=== PATIENT | male | born 1990 | race Caucasian/White ===

== ENCOUNTER 2020-04-02 17:26 | Emergency (ER) | payer OTHER, SELFPAY ==
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
[2020-04-02 17:45] VITALS: BP 138/80; PULSE 73; RESP 16; TEMP 36.9; O2SAT 99
--- NOTE | 2020-04-02 17:53 | WC.ED.TRAUMA ---
HPI - Trauma General Chief Complaint: Extremity Injury, Upper Stated Complaint: thumb injury Time Seen by Provider: 04/02/20 17:32 Source: patient Mode of arrival: ambulatory Limitations: no limitations History of Present Illness HPI narrative: Patient is a 29-year-old male who presents to emergency department for evaluation of left thumb injury noting that he closed the thumb in a door just prior to arrival with moderate aching pain at the base of the thumb. Patient also notes right upper posterior dental pain and was just seen at a dental office prescribed Motrin and amoxicill patient denies any recent illness or other complaints and is otherwise resting comfortably in the room upon arrival Related Data Allergies Allergy/AdvReac Type Severity Reaction Status Date / Time No Known Allergies Allergy Unverified 08/09/18 15:20 Review of Systems Review of Systems: All systems reviewed & are unremarkable except as noted in HPI and below PMFSH Social History Social History (Updated 04/02/20 @ 17:55 by Frandy Sibley PA-C) Smoking status: Current every day smoker Exam Narrative: Exam Narrative: GENERAL: Well-appearing, well-nourished, and in no acute distress. HEAD: Normocephalic, atraumatic. EYES: PERRLA and EOMI. ENT: Nares clear, no rhinorrhea or epistaxis. Mucous membranes moist. Oropharynx without tonsillar hypertrophy exudate or other lesions. Dental caries to right upper posterior molar no erythema fluctuance or other abnormalities. Uvula midline no trismus or drooling CHEST: Clear to auscultation. No respiratory distress. No wheezes rales or rhonchi HEART: Regular rate and rhythm. No murmur heard. Normal peripheral pulses. EXTREMITIES: Normal range of motion. No edema. T tenderness at the base of the left thumb no deformity SKIN: Warm, dry, no rash. NEURO: No focal deficits. Alert and oriented x3. Neurovascularly intact PSYCH: Normal mood and affect. Course Vital Signs Vital signs: Vital Signs Temperature 98.4 F 04/02/20 17:45 Pulse Rate 73 04/02/20 17:45 Respiratory Rate 16 04/02/20 17:45 Blood Pressure 138/80 04/02/20 17:45 Pulse Oximetry 99 04/02/20 17:45 Temperature 98.4 F 04/02/20 17:45 Pulse Rate 73 04/02/20 17:45 Respiratory Rate 16 04/02/20 17:45 Blood Pressure 138/80 04/02/20 17:45 Pulse Oximetry 99 04/02/20 17:45 MDM - Trauma MDM Narrative Medical decision making narrative: Patients injury or pain is consistent with musculoskeletal etiology. No signs of neurological or vascular compromise on exam. Compartments and tisues are soft without signs of compartment syndrome. Pain is felt appropriate for further evaluation on an outpatient basis. Discharge Plan Discharge Clinical Impression: Injury of thumb, left, Dentalgia Patient Disposition: Home, Self-Care Condition: Stable Instructions: Antibiotic Form, Toothache (ED) Additional Instructions: Follow up with your primary care doctor in 5-7 days for re-evaluation. Go to ER for worsening pain, vision changes, nausea/vomiting, fever/chills, weakness, chest pain, shortness of breath, numbness/tingling, slurred speech, difficulty walking, change in mental status etc. or any other concerns. Follow-up with dentistry in the next 7 days Take any prescribed medications as directed. Follow-up/Referrals: Eros Zarate MD [Primary Care Provider] - Stand Alone Forms: Work/School Release IP
[2020-04-02] MEDS: KETOROLAC (*BKC) 60 MG/2 ML VIAL IM (19:10)
== END 2020-04-02 19:15 | disposition home or self-care (01) ==
PROVIDERS: Emergency Provider Emergency Medicine; PCP Emergency Medicine
DX: S69.92XA Unspecified injury of left wrist, hand and finger(s), initial encounter (principal); K08.89 Other specified disorders of teeth and supporting structures; F17.210 Nicotine dependence, cigarettes, uncomplicated
CPT/HCPCS: 73140; 96372; 99283; A9270; J1885

== ENCOUNTER 2020-09-26 09:08 | Emergency (ER) | payer OTHER, SELFPAY ==
[2020-09-26 09:18] VITALS: BP 141/80; PULSE 60; RESP 16; TEMP 36.6; O2SAT 100
--- NOTE | 2020-09-26 10:14 | ED.DENTAL ---
HPI - Dental/Oral General Chief complaint: Dental/Oral Stated complaint: TOOTH BROKE Time Seen by Provider: 09/26/20 10:07 Source: patient Mode of arrival: ambulatory Limitations: no limitations History of Present Illness HPI Narrative: 30 years old white male presents with left upper dental pain, for the last few days. Patient reported to having a broken tooth at that area few days ago subsequently developed some swelling of the gums. Patient denies any fever, chills, nausea, vomiting, headache, difficulty swallowing or breathing Related Data Home Medications Medication Instructions Recorded Confirmed paroxetine HCl 20 mg PO DAILY 09/26/20 09/26/20 Allergies Allergy/AdvReac Type Severity Reaction Status Date / Time No Known Allergies Allergy Verified 09/26/20 09:51 Review of Systems Review of Systems: Narrative: CONSTITUTIONAL: Denies fever, chills, or sweats. EYES: Denies visual changes, redness, or discharge. ENT: Denies rhinorrhea, congestion, sore throat, or otalgia. CARDIOVASCULAR: Denies chest pain, palpitations, or edema. RESPIRATORY: Denies cough or dyspnea. GASTROINTESTINAL: Denies abdominal pain, nausea, vomiting, or diarrhea. GENITOURINARY: Denies dysuria or hematuria. SKIN: Denies rash or itching. MUSCULOSKELETAL: Denies back pain, joint pain, or myalgia. NEUROLOGIC: Denies headache, numbness, or weakness. PSYCHIATRIC: Denies anxiety or depression. PMFSH Social History Social History Smoking status: Current every day smoker Exam Narrative: Exam Narrative: General appearance: Well-developed, well-nourished Skin: Normal color ENT: Oropharynx normal, ears normal, nose normal, broken tooth left upper gum with swelling tender exam. No abscess formation Neck: Supple, nontender Chest and respiratory: Airway patent, no respiratory distress, no accessory muscle use Heart: Regular rate/rhythm Neurologic: Alert and oriented ?3, Course Course Emergency Course: Stable Vital Signs Vital signs: Vital Signs Temperature 36.6 C 09/26/20 09:18 Pulse Rate 60 09/26/20 09:18 Respiratory Rate 16 09/26/20 09:18 Blood Pressure 141/80 H 09/26/20 09:18 Pulse Oximetry 100 09/26/20 09:18 Temperature 36.6 C 09/26/20 09:18 Pulse Rate 60 09/26/20 09:18 Respiratory Rate 16 09/26/20 09:18 Blood Pressure 141/80 H 09/26/20 09:18 Pulse Oximetry 100 09/26/20 09:18 MDM - Dental/Oral MDM Narrative Medical decision making narrative: Dental infection is my concern Differential Diagnosis Differential diagnosis: Likely toothache and fracture of tooth Critical Care Time Critical Care Time Critical Care Time: No Discharge Plan Discharge Clinical Impression: Toothache Patient Disposition: Home, Self-Care Condition: Stable Instructions: Toothache (ED) Additional Instructions: Return if symptoms are worsening , call your dentist for appointment, take Tylenol as as needed for aches and pain, continue home medications. Prescriptions: New penicillin V potassium 500 mg tablet 500 mg PO Q6H Qty: 40 RF: 0 No Action paroxetine HCl 20 mg tablet 20 mg PO DAILY RF: 0 Follow-up/Referrals: Eros Zarate MD [Primary Care Provider] - Stand Alone Forms: Work/School Release IP
[2020-09-26] MEDS: KETOROLAC (*BKC) 60 MG/2 ML VIAL IM (10:42)
== END 2020-09-26 10:45 | disposition home or self-care (01) ==
PROVIDERS: Emergency Provider Emergency Medicine; PCP Emergency Medicine
DX: K08.89 Other specified disorders of teeth and supporting structures (principal); F17.200 Nicotine dependence, unspecified, uncomplicated
CPT/HCPCS: 96372; 99283; J1885

== ENCOUNTER 2021-01-10 20:50 | Emergency (ER) | payer OTHER, SELFPAY ==
--- NOTE | ~2021-01-10 | XR_ITS ---
EXAMINATION: XR ankle RT min 3V DATE: 01/10/2021 21:41 INDICATION: Right ankle injury and pain. TECHNIQUE: 4 views of right ankle were obtained. COMPARISON: Right ankle radiographs 03/29/2017 FINDINGS: Bone alignment is normal. No acute fracture. There is a small fragment of chronic ossificat ion distal to medial malleolus. There is mild ankle joint osteoarthritis. There is ankle soft tissue swelling. IMPRESSION: 1. Mild ankle joint osteoarthritis. Reviewed, dictated and finalized at location A.
--- NOTE | ~2021-01-10 | CT_ITS ---
EXAMINATION: CT brain wo con DATE: 01/10/2021 21:33 INDICATION: Head injury. Seizure. TECHNIQUE: Computed tomography (CT) of the head was performed without intravenous contrast. The mA wa s adjusted according to patient size. Iterative reconstruction technique was employed. The dose-lengt h product was 681.00 mGy-cm. COMPARISON: None FINDINGS: There is no intracranial hemorrhage, acute infarction, or abnormal intracranial mass lesion . The ventricles are normal in size. There is mild mucosal thickening in the paranasal sinuses. The m astoid air cells are normal. IMPRESSION: 1. Normal brain. Reviewed, dictated and finalized at location A. IMPRESSION: 1. Normal brain.
[2021-01-10 20:56] VITALS: BP 121/77; PULSE 67; RESP 16; TEMP 36.9; O2SAT 98
[2021-01-10 21:13] VITALS: BP 101/87; PULSE 98; RESP 12; RESP 16; O2SAT 96; O2SAT 98
--- NOTE | 2021-01-10 21:14 | ED.FALL ---
HPI - Fall General Chief Complaint: Fall Stated Complaint: Fall/inj to head-rt ankle ? seizure Time Seen by Provider: 01/10/21 21:11 Source: patient and family Limitations: no limitations and clinical condition History of Present Illness HPI Narrative: Patient is 30 years old white male rolled his right ankle and he fell down 4-6 steps smacked his head on the wll without loss of consciousness, was trying to remove his shoes then blacked out ,smacked his head hard on the table and started having seizure-like activity lasted for about 30 seconds. On arrival to the emergency room patient had another syncope during blood withdrawal. 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 Currently patient complaining of right ankle pain denying any headache, nausea, vomiting, chest pain or back pain. Related Data Allergies Allergy/AdvReac Type Severity Reaction Status Date / Time No Known Allergies Allergy Verified 01/10/21 20:51 Review of Systems Review of Systems: Narrative: CONSTITUTIONAL: Denies fever, chills, or sweats. EYES: Denies visual changes, redness, or discharge. ENT: Denies rhinorrhea, congestion, sore throat, or otalgia. CARDIOVASCULAR: Denies chest pain, palpitations, or edema. RESPIRATORY: Denies cough or dyspnea. GASTROINTESTINAL: Denies abdominal pain, nausea, vomiting, or diarrhea. GENITOURINARY: Denies dysuria or hematuria. SKIN: Denies rash or itching. MUSCULOSKELETAL: Denies back pain, joint pain, or myalgia. NEUROLOGIC: Denies headache, numbness, or weakness. PSYCHIATRIC: Denies anxiety or depression. [facility] Social History Social History Smoking status: Current every day smoker Exam Narrative: Exam Narrative: General appearance: Well-developed, well-nourished Skin: Normal color Head: Normocephalic, nontraumatic Eyes: Clear conjunctiva ENT: Oropharynx normal, ears normal, nose normal Neck: Supple, nontender Chest and respiratory: Airway patent, no respiratory distress, no accessory muscle use Heart: Regular rate/rhythm Abdomen: Soft, nontender, no organomegaly, quiet bowel sounds Vascular: Normal peripheral pulses, normal capillary refill. Musculoskeletal: Right ankle showed swelling laterally, slight limited range of motion, no deformity Neurologic: Alert and oriented ?3, [employer] is normal as tested, no gross motor deficit Course Course Emergency Course: Stable Reevaluation(s) Reevaluation #1: Currently patient feeling okay, declined to be transferred to [facility] and they would like to go home AGAINST MEDICAL ADVICE. Patient was told about the possible complication of head trauma like another syncope, or other seizure-like activity or the possibility of contusion and edema of the brain in the next few hours. Date: 01/10/21 Time: 22:50 Consultations Consultation #1: Dr. Prieto, ED [facility] accepted transfer Date: 01/10/21 Time: 21:56 Vital Signs Vital signs: Vital Signs Temperature 36.9 C 01/10/21 20:56 Pulse Rate 67 01/10/21 20:56 Respiratory Rate 16 01/10/21 20:56 Blood Pressure 121/77 01/10/21 20:56 Pulse Oximetry 98 01/10/21 20:56 Temperature 36.9 C 01/10/21 20:56 Pulse Rate 98 01/10/21 21:13 Respiratory Rate 16 01/10/21 21:13 Blood Pressure 101/87 01/10/21 21:13 Pulse Oximetry 98 01/10/21 21:13 MDM - Fall MDM Narrative Medical decision making narrative: Patient had a fall with subsequent loss of consciousness and seizure-like activity. Intracranial injury, contusion is my concern. CT head, x-ray right ankle ordered. Further plan to follow Lab Da
[2021-01-10 21:34] LABS: Basophils Percent Auto 0.3 % (0.2-1.2); Eosinophils Absolute Auto 0.1 K/mm3 (0-0.3); Eosinophils Percent Auto 0.7 % (0-4.4); Hematocrit 42.2 % (42.0-52.0); Hemoglobin 14.6 g/dL (14.0-18.0); Immature Granulocyte Absolute 0.02 K/mm3 (0.00-0.031); Immature Granulocyte Percent A 0.2 % (0-0.5); Lymphocytes Absolute Auto 2.88 K/mm3 (0.9-3.2); Lymphocytes Percent Auto 27.6 % (18.3-44.2); Mean Corpuscular HGB Conc 34.6 g/dl (32-36); Mean Corpuscular Hemoglobin 29.4 pg (26-34); Mean Corpuscular Volume 85.1 fl (80-100); Mean Platelet Volume 10.9 fl (7.4-10.4); Monocytes Absolute Auto 0.7 K/mm3 (0.1-0.6); Monocytes Percent Auto 7.1 % (2.6-8.5); Neutrophils Absolute Auto 6.7 K/mm3 (1.3-6.7); Neutrophils Percent Auto 64.1 % (45.5-73.1); Platelet Count Result 241 k/mm3 (150-375); Red Blood Count 4.96 M/mm3 (4.6-6.20); Red Cell Distribution Width 12.6 % (11.5-14.5); White Blood Count 10.4 K/mm3 (4.5-10.0)
[2021-01-10 21:51] LABS: Alanine Aminotransferase 31 U/L (4-50); Albumin Level 4.6 g/dL (3.5-5.1); Alkaline Phosphatase 72 U/L (38-126); Anion Gap 7 mmol/L (8-16); Aspartate Amino Transferase 33 U/L (17-59); Bilirubin,Total 0.2 mg/dL (0.2-1.3); Blood Urea Nitrogen 20 mg/dL (9-20); Calcium 9.4 mg/dL (8.4-10.2); Carbon Dioxide 24 mmol/L (22-30); Chloride 106 mmol/L (98-107); Estimated CRCL calculation 137 ml/min; Estimated Glomerular Filt Rate > 60; Glucose 106 mg/dL (75-110); Sodium 137 mmol/L (137-145)
[2021-01-10 21:58] LABS: Potassium 3.9 mmol/L (3.4-5.0)
--- NOTE | 2021-01-10 22:58 | PC.NURSE ---
patient expressed that he would not like to be transfered to [facility]. pt expressed that he would like to leave. pt was seen by . Pt was advised of the risk of leaving. pt was told that he would have have to sign AMA. Patient signed out AMA.
[2021-01-10 23:04] VITALS: BP 110/65; PULSE 70; RESP 16; TEMP 36.6; O2SAT 100
== END 2021-01-10 23:05 | disposition left against medical advice (07) ==
PROVIDERS: Emergency Medicine; Emergency Provider Emergency Medicine; PCP Emergency Medicine
DX: S06.0X9A Concussion with loss of consciousness of unspecified duration, initial encounter (principal); R55 Syncope and collapse; R56.9 Unspecified convulsions; F17.200 Nicotine dependence, unspecified, uncomplicated; M19.071 Primary osteoarthritis, right ankle and foot; W10.9XXA Fall (on) (from) unspecified stairs and steps, initial encounter; W22.8XXA Striking against or struck by other objects, initial encounter
CPT/HCPCS: 36415; 70450; 73610; 80053; 85025; 99284

== ENCOUNTER 2023-07-25 17:44 | Emergency (ER) | payer OTHER, SELFPAY ==
--- NOTE | ~2023-07-25 | XR_ITS ---
EXAMINATION: XR chest 2V DATE: 07/25/2023 18:02 INDICATION: Chest pain TECHNIQUE: Frontal and lateral views of the chest are obtained COMPARISON: 05/22/2016 FINDINGS: The lungs are free of acute opacities. No pleural effusion or pneumothorax. The cardiomedia stinal silhouette is normal. The visualized bones and soft tissues are unremarkable. IMPRESSION: 1. No acute cardiopulmonary abnormality. Reviewed, dictated and finalized at location F.
[2023-07-25 17:51] VITALS: BP 120/67; PULSE 84; RESP 18; TEMP 36.4; O2SAT 96
--- NOTE | 2023-07-25 17:57 | ED.GENADULT ---
HPI - General Adult General Chief complaint: Trauma Stated complaint: blunt chest trauma History of Present Illness HPI narrative: 32-year-old male with no medical problems presents to the emergency room for evaluation of chest wall pain following an injury at work. Patient states the hub assembly from a tire slipped and struck him in the chest. Patient states that it briefly took the wind out of him. Patient states the pain is worse with inspiration and movement. No other distracting injuries. Patient denies shortness of breath or difficulty breathing. Related Data Allergies Allergy/AdvReac Type Severity Reaction Status Date / Time No Known Allergies Allergy Verified 07/25/23 17:45 Review of Systems Review of Systems: All systems reviewed & are unremarkable except as noted in HPI and below PMFSH Social History Social History Smoking status: Current every day smoker Exam Const: General: healthy appearing, no acute distress and alert HENMT: Head: normal to inspection Eyes: Pupils: Equal, round and reactive pupils present EOM: EOMs intact bilaterally Chest: Chest palpation & inspection: normal inspection of the chest and tenderness Other: +TTP over the midsternum Resp: Effort & Inspection: normal respiratory effort Cardio: Rate: regular rate Rhythm: regular rhythm Other: Normal heart sounds, no muffled heart sounds Neuro: General: patient oriented x3, moves all extremities and CN's II-XI intact bilaterally Speech: normal speech Course Vital Signs Vital signs: Vital Signs Temperature 36.4 C 07/25/23 17:51 Pulse Rate 84 07/25/23 17:51 Respiratory Rate 18 07/25/23 17:51 Blood Pressure 120/67 07/25/23 17:51 Pulse Oximetry 96 07/25/23 17:51 Oxygen Delivery Room Air 07/25/23 17:51 Temperature 36.4 C 07/25/23 17:51 Pulse Rate 84 07/25/23 17:51 Respiratory Rate 18 07/25/23 17:51 Blood Pressure 120/67 07/25/23 17:51 Pulse Oximetry 96 07/25/23 17:51 Oxygen Delivery Room Air 07/25/23 17:51 Medical Decision Making [facility] Narrative Medical decision making narrative: 32-year-old male presents to the emergency room for evaluation of low energy blunt chest trauma following a work-related injury. Chest x-ray shows no acute bony abnormalities, no evidence of hemo or pneumothorax or pulmonary contusion, or blunt aortic injury. Vitals are stable. Vital Signs Vital Signs: Vital Signs Temperature 36.4 C 07/25/23 17:51 Pulse Rate 84 07/25/23 17:51 Respiratory Rate 18 07/25/23 17:51 Blood Pressure 120/67 07/25/23 17:51 Pulse Oximetry 96 07/25/23 17:51 Oxygen Delivery Room Air 07/25/23 17:51 Temperature 36.4 C 07/25/23 17:51 Pulse Rate 84 07/25/23 17:51 Respiratory Rate 18 07/25/23 17:51 Blood Pressure 120/67 07/25/23 17:51 Pulse Oximetry 96 07/25/23 17:51 Oxygen Delivery Room Air 07/25/23 17:51 Imaging Data Radiologist's impression: Impressions Chest X-Ray 07/25/23 18:08 IMPRESSION: 1. No acute cardiopulmonary abnormality. Discharge Plan Discharge Clinical Impression: Chest wall contusion Qualifiers: Encounter type: initial encounter Laterality: unspecified laterality Qualified Code(s): S20.219A - Contusion of unspecified front wall of thorax, initial encounter Patient Disposition: Home, Self-Care Condition: Stable Instructions: Antibiotic Form Prescriptions: New naproxen 500 mg tablet 500 mg PO BID Qty: 20 0RF Follow-up/Referrals: Eros Zarate MD [Primary Care Provider] - Stand Alone Forms: Work/School Release IP Time of Disposition: 18:17
== END 2023-07-25 18:51 | disposition home or self-care (01) ==
PROVIDERS: Emergency Provider Nurse Practitioner Family; PCP Emergency Medicine
DX: S20.219A Contusion of unspecified front wall of thorax, initial encounter (principal); F17.200 Nicotine dependence, unspecified, uncomplicated; W22.8XXA Striking against or struck by other objects, initial encounter
CPT/HCPCS: 71046; 99283

== ENCOUNTER 2023-09-19 21:17 | Emergency (ER) | payer OTHER, SELFPAY ==
[2023-09-19 21:42] VITALS: BP 133/84; PULSE 71; RESP 20; TEMP 36.5; O2SAT 97
--- NOTE | 2023-09-19 22:44 | PC.NURSE ---
pt. to desk stating they are going home. pt. ambulated out of ed w/ steady gait.
== END 2023-09-19 23:11 | disposition left against medical advice (07) ==
PROVIDERS: PCP Emergency Medicine
DX: M54.9 Dorsalgia, unspecified (principal); V49.50XA Passenger injured in collision with unspecified motor vehicles in traffic accident, initial encounter
CPT/HCPCS: 99199

== ENCOUNTER 2024-03-27 12:15 | Emergency (ER) | payer OTHER, SELFPAY ==
--- NOTE | 2024-03-27 12:17 | ED.URI ---
HPI - URI/Sore Throat General Chief Complaint: Ear Stated Complaint: Eye Swelling and Ear Irritation Time Seen by Provider: 03/27/24 12:17 Source: patient Mode of arrival: ambulatory Limitations: no limitations History of Present Illness HPI Narrative: Patient is a 33-year-old male who presents with right eye swelling, redness and pain for 3 days. Patient got hand soap in eye at work. Patient states he wash all out by still irritated and red. Patient also reports right ear irritation. States daughter had your infection is concerned he might have one too. Patient also endorses increased stress due to sister's recent harder. States the is Sunday and Sunday. Patient does report he has a PCP but would like resources for counseling. Denies any thoughts of harming himself or others. States he has anxiety and has been on medication in the past and would like to be on medication again. Related Data Allergies Allergy/AdvReac Type Severity Reaction Status Date / Time No Known Allergies Allergy Verified 03/27/24 12:22 Review of Systems Review of Systems: All systems reviewed & are unremarkable except as noted in HPI and below Constitutional: Constitutional: Denies body ache(s), Denies chills, Denies fatigue, Denies fever(s), Denies headache(s), Denies malaise and Denies weakness Eyes: Eyes: Denies blurry vision, Reports irritation, Denies itchy eyes, Denies loss of vision and Reports eye pain ENT: Reports otalgia, Denies headache(s), Denies nasal congestion, Denies sinus pain and Denies sore throat Cardiovascular: Cardiovascular: Denies chest pain, Denies irregular heart rhythm and Denies dyspnea Respiratory: Respiratory: Denies cough and Denies dyspnea Gastrointestinal: Gastrointestinal: Denies abdominal pain, Denies diarrhea, Denies nausea and Denies vomiting Musculoskeletal: Musculoskeletal: Denies back pain, Denies myalgias and Denies arthralgias Integumentary/Breasts: Skin/Breast: Denies pruritus and Denies rash Neurologic: Denies headache(s), Denies loss of vision and Denies weakness Psychiatric: Psychiatric: Reports no additional psychiatric complaints and Reports anxiety Endocrine: Endocrine: Denies fatigue Allergic/Immunologic: Allergic/Immunologic: Denies itchy eyes PMFSH Social History Social History Smoking status: Current every day smoker Comments At time of signature, agree with nursing past medical, surgical, social and family history. There is no relevant family history pertinent to the presenting complaint. Exam Const: General: cooperative, healthy appearing, comfortable, no acute distress and well nourished Nutritional Appearance: well nourished Orientation/consciousness: patient oriented x3 Limitations: no limitations HENMT: Head: normal to inspection, normocephalic and atraumatic Ears: hearing grossly normal bilaterally, external ears normal, TM's normal bilaterally, EAC's normal and no periauricular adenopathy Face/Nose/Sinus: Normal external nose present, Normal nasal mucous membranes and turbinates present, normal facial exam, sinuses nontender and face symmetric Face and sinus: normal facial exam, sinuses nontender and face symmetric Mouth: Yes Normal oral and palatal mucosa present, Yes lip normal, Yes tongue normal, Yes Normal salivary glands and ducts present, Yes oropharynx normal and Yes moist mucous membranes Teeth and gingiva: dentition normal Throat: posterior oropharynx normal, tonsils normal and uvula midline Eyes: General: appearance normal, both eyes and all related structures Alignment and Position: alignment normal and position normal Periorbital: periorbital findings normal Eyelids: eyelid abnormality right lower eyelid inflamed cyst internal lid, erythema and tenderness; without foreign bodies Pupils: Equal, round and reactive pupils present Neck: Neck: normal visual inspection, full ROM, no lymphadenopathy and
[2024-03-27 12:25] VITALS: BP 122/70; PULSE 90; RESP 16; TEMP 36.1; O2SAT 98
[2024-03-27 12:27] VITALS: BP 122/70; PULSE 90; RESP 16; TEMP 36.1; O2SAT 98
== END 2024-03-27 12:47 | disposition home or self-care (01) ==
PROVIDERS: Emergency Provider Nurse Practitioner Family; PCP Emergency Medicine
DX: H00.025 Hordeolum internum left lower eyelid (principal); F17.200 Nicotine dependence, unspecified, uncomplicated
CPT/HCPCS: 99213; G0463

== ENCOUNTER 2024-07-08 10:57 | Emergency (ER) | payer OTHER, SELFPAY ==
--- NOTE | 2024-07-08 11:02 | ED.EYEPROB ---
HPI - Eye Problem General Chief complaint: Eye Problems Stated complaint: right eye red discharge Time Seen by Provider: 07/08/24 11:13 Source: patient and RN notes reviewed Mode of arrival: ambulatory Limitations: no limitations History of Present Illness HPI Narrative: 33 year old male presents with concern for right upper eyelid redness, swelling, pain, itching, mucus production for 2 months. Reports it has flared and gotten slightly better throughout those 2 months that has never gone away. Reports his eye doctor gave him cleaning wipes when it started that are not making a difference. Reports his eye is crusted shut each morning chief complaint: eye pain and eye redness Related Data Home Medications Medication Instructions Recorded Confirmed sertraline 25 mg tablet 25 mg PO DAILY 07/08/24 07/08/24 Allergies Allergy/AdvReac Type Severity Reaction Status Date / Time No Known Allergies Allergy Verified 07/08/24 11:23 Review of Systems Review of Systems: CONSTITUTIONAL: Denies malaise, chills, sweats, or fever. EYES: Denies visual changes. Reports right redness, irritation, crusty discharge. ENT: Denies rhinorrhea, congestion, sinus pain, otalgia or sore throat. SKIN: Reports right upper eyelid redness, swelling, tenderness NEUROLOGIC: Denies numbness, weakness, or headache. PSYCHIATRIC: Denies anxiety or depression. All systems reviewed & are unremarkable except as noted in HPI and below PMFSH Social History Social History Smoking status: Current every day smoker Comments At time of signature, agree with nursing past medical, surgical, social and family history. There is no relevant family history pertinent to the presenting complaint Exam Narrative: GENERAL: Well-appearing, well-nourished, and in no acute distress. HEAD: Normocephalic, atraumatic. EYES: PERRLA, sclera clear, and EOMI. No nystagmus. Right sclera and conjunctivae injected. Right Upper erythema, edema, tenderness with hordeolum internum noted, no periorbital edema noted ENT: Nares clear, turbinates pink, no rhinorrhea or epistaxis. Mucous membranes moist. NECK: Supple. CHEST: No respiratory distress. Speaks in full sentences. HEART: Regular rate and rhythm. SKIN: Warm, dry, no visible rash. NEURO: Alert and oriented x3. PSYCH: Normal mood and affect Course Course Emergency Course: The extended timeline of this illness warrants oral abx, follow-up with eye doctor Patient is aware of diagnosis, understands and agrees to treatment plan. Anticipatory guidance given. Patient agrees to follow-up as directed and is aware of reasons to seek care at the emergency department. Portions of this record may have been created with voice recognition software Level of Care: Express Care Visit Vital Signs Vital signs: Reviewed. MDM - Eye Problem MDM Narrative Medical decision making narrative: Consideration of the following conditions may be warranted for the presenting problem, they are not final diagnoses: Bacterial conjunctivitis, allergic conjunctivitis, viral conjunctivitis, foreign body, blepharitis, chalazion, hordeolum, corneal abrasion, preseptal cellulitis, orbital cellulitis. No evidence of proptosis, ophthalmoplegia, vision loss, pain with eye movement. Exam findings show no acute concerns or changes; patient is non-toxic appearing and is in no distress. Patient is appropriate for outpatient treatment and follow-up. Critical Care Time Critical Care Time Critical Care Time: No Discharge Plan Discharge Clinical Impression: Hordeolum Patient Disposition: Home, Self-Care Condition: Stable Instructions: Antibiotic Ze, Elena (ED) Additional Instructions: Do not touch or rub your eye. Use a warm washcloth on your eye as often as possible Use eyedrops and take antibiotics as directed Practice good handwashing You may take Tylenol or ibuprofen for pa
[2024-07-08 11:04] VITALS: BP 135/74; PULSE 97; RESP 16; TEMP 37.1; O2SAT 98
== END 2024-07-08 11:35 | disposition home or self-care (01) ==
PROVIDERS: Emergency Provider Nurse Practitioner; PCP Emergency Medicine
DX: H00.011 Hordeolum externum right upper eyelid (principal); F17.200 Nicotine dependence, unspecified, uncomplicated; Z79.899 Other long term (current) drug therapy
CPT/HCPCS: 99213; G0463

== ENCOUNTER 2024-08-05 10:52 | Emergency (ER) | payer OTHER, SELFPAY ==
[2024-08-05 10:58] VITALS: BP 140/70; PULSE 79; RESP 16; TEMP 37.2; O2SAT 99
--- NOTE | 2024-08-05 10:58 | ED.EYEPROB ---
HPI - Eye Problem General Chief complaint: Eye Problems Stated complaint: Right Eye Irritation Time Seen by Provider: 08/05/24 10:58 Source: patient, RN notes reviewed and old records reviewed Mode of arrival: ambulatory Limitations: no limitations History of Present Illness HPI Narrative: 33-year-old male presents to the [facility] with a continued stye to the right outer upper eyelid. Inflammation noted. Has seen a eye doctor, was prescribed oral antibiotics. Patient reports that the eye doctor told him a stye has to be there for at least a year before they surgically remove it. Related Data Home Medications Medication Instructions Recorded Confirmed sertraline 25 mg tablet 25 mg PO DAILY 07/08/24 08/05/24 rosuvastatin 10 mg tablet 10 mg DIRECTED 08/05/24 08/05/24 Allergies Allergy/AdvReac Type Severity Reaction Status Date / Time No Known Allergies Allergy Verified 07/08/24 11:23 Review of Systems Review of Systems: All systems reviewed & are unremarkable except as noted in HPI and below Constitutional: Constitutional: Reports no additional constitutional complaints Eyes: Eyes: Reports as per HPI, Denies blurry vision, Denies dry eyes, Denies irritation and Denies eye pain ENT: Reports system reviewed and no additional complaints, except as documented Cardiovascular: Cardiovascular: Reports no additional cardiovascular complaints, Denies chest pain and Denies dyspnea Respiratory: Respiratory: Reports no additional respiratory complaints, Denies chest congestion, Denies cough and Denies dyspnea Gastrointestinal: Gastrointestinal: Reports no additional gastrointestinal complaints, Denies abdominal pain, Denies nausea and Denies vomiting Musculoskeletal: Musculoskeletal: Reports no additional musculoskeletal complaints Integumentary/Breasts: Skin/Breast: Reports system reviewed and no additional complaints, except as docu PMFSH Social History Social History Smoking status: Current every day smoker Comments At the time of my signature, I reviewed and agree with the nursing past medical, surgical, social, and family history. There is no relevant family history pertinent to the patient complaint. Exam Const: General: cooperative, healthy appearing, comfortable, no acute distress, well developed, alert and well nourished Nutritional Appearance: well nourished Orientation/consciousness: patient oriented x3 Limitations: no limitations HENMT: Head: normal to inspection Ears: hearing grossly normal bilaterally and external ears normal Face/Nose/Sinus: Normal external nose present, normal facial exam and face symmetric Face and sinus: normal facial exam and face symmetric Eyes: General: appearance normal, both eyes and all related structures Alignment and Position: alignment normal Periorbital: periorbital findings normal Eyelids: eyelid abnormality right upper eyelid inflamed cyst and tenderness; without erythema, no crusting or scaling of lid margins and with no swelling Eyes/upper lids images: 1. Large stye without signs of cellulitic changes Neck: Neck: normal visual inspection, full ROM, no lymphadenopathy and no meningeal signs Chest: Chest palpation & inspection: normal inspection of the chest Resp: Effort & Inspection: normal respiratory effort and able to speak in complete sentences Cardio: Rate: regular rate Skin: General skin exam: normal color and no rashes or lesions noted Lesions: no lesions Rashes: no rashes Wounds: no wounds Neuro: General: patient oriented x3, gait normal, tone normal, moves all extremities and no meningeal signs Cognition (Neuro): normal cognition Speech: normal speech Gait exam (Neuro): Normal gait present Extrem: General: normal to inspection, full ROM, capillary refill normal and normal gait Psych: Appearance: grossly normal and well kempt Mental Status: mental status grossly normal Speech and
== END 2024-08-05 11:19 | disposition home or self-care (01) ==
PROVIDERS: Emergency Provider Nurse Practitioner; PCP Emergency Medicine
DX: H00.011 Hordeolum externum right upper eyelid (principal); F17.200 Nicotine dependence, unspecified, uncomplicated
CPT/HCPCS: 99213; G0463

== ENCOUNTER 2024-08-09 13:54 | Emergency (ER) | payer OTHER, SELFPAY ==
--- NOTE | ~2024-08-09 | XR_ITS ---
XR finger 1st RT min 2V DATE: 08/09/2024 14:33 INDICATION: Injury, pain TECHNIQUE: 3 views COMPARISON: None FINDINGS: No fracture or dislocation, periosteal reaction or bone destruction, radiopaque soft tissue foreign body. Joint spaces are preserved. IMPRESSION: Negative Reviewed, dictated and finalized at location A. IMPRESSION: Negative
[2024-08-09 14:07] VITALS: BP 128/78; PULSE 81; RESP 20; TEMP 37.3; O2SAT 97
--- NOTE | 2024-08-09 14:23 | ED_ITS ---
HPI - Extremity Injury (Upper) General Chief Complaint: Extremity Injury, Upper Stated Complaint: Right Thumb Pain Time Seen by Provider: 08/09/24 14:45 Source: patient, RN notes reviewed and old records reviewed Mode of arrival: ambulatory Limitations: no limitations History of Present Illness HPI narrative: Patient presents with complaints of pain to right thumb after slamming it in a car door last night. He has not taken any medication for his symptoms. He does have some bruising, no obvious deformity. Retains full range of motion to the affected digit. Denies other injury and trauma, voices no other concerns or complaints today. Related Data Home Medications Medication Instructions Recorded Confirmed sertraline 25 mg tablet 25 mg PO DAILY 07/08/24 08/09/24 rosuvastatin 10 mg tablet 10 mg PO DAILY 08/05/24 08/09/24 gabapentin 300 mg capsule 300 mg PO BID 08/09/24 08/09/24 loratadine 10 mg tablet 10 mg PO DAILY 08/09/24 08/09/24 Allergies Allergy/AdvReac Type Severity Reaction Status Date / Time No Known Allergies Allergy Verified 08/09/24 13:55 Review of Systems Review of Systems: All systems reviewed & are unremarkable except as noted in HPI and below Constitutional: Constitutional: Reports no additional constitutional complaints ENT: Reports system reviewed and no additional complaints, except as documented Cardiovascular: Cardiovascular: Reports no additional cardiovascular complaints Respiratory: Respiratory: Reports no additional respiratory complaints Gastrointestinal: Gastrointestinal: Reports no additional gastrointestinal complaints [facility] Social History Social History Smoking status: Current every day smoker Comments At the time of my signature, I reviewed and agree with the nursing past medical, surgical, social, and family history. There is no relevant family history pertinent to the patient complaint. Exam Const: General: cooperative, no acute distress, alert and awake Orientation/consciousness: oriented to person, oriented to place and oriented to time HENMT: Head: normal to inspection Resp: Effort & Inspection: normal respiratory effort and able to speak in complete sentences Auscultation: clear to auscultation bilaterally, no crackles, no rales, no rhonchi and no wheezes Cardio: Palpation: normal PMI Rate: regular rate Rhythm: regular rhythm Heart sounds: S1 normal heart sound present and S2 normal heart sound present Neuro: General: oriented to person, oriented to place and oriented to time Cranial nerves: Yes CN's II-XII intact bilaterally Extrem: Left upper extremity: hand normal capillary refill, neuromotor exam normal, neurosensory exam normal, swelling of the thumb and ecchymosis of the thumb involving the entire digit Psych: Appearance: grossly normal Thought process: Normal thought process present Insight: Good insight present (Psych) Judgement: Good judgement present (Psych) Course Course Level of Care: Express Care Visit Vital Signs Vital signs: Vital Signs Temperature 99.2 F 08/09/24 14:07 Pulse Rate 81 08/09/24 14:07 Respiratory Rate 20 08/09/24 14:07 Blood Pressure 128/78 08/09/24 14:07 Pulse Oximetry 97 08/09/24 14:07 Oxygen Delivery Room Air 08/09/24 14:07 Temperature 99.2 F 08/09/24 14:07 Pulse Rate 81 08/09/24 14:07 Respiratory Rate 20 08/09/24 14:07 Blood Pressure 128/78 08/09/24 14:07 Pulse Oximetry 97 08/09/24 14:07 Oxygen Delivery Room Air 08/09/24 14:07 Reviewed MDM - Extremity Injury (Upper) MDM Narrative Medical decision making narrative: X-ray negative for fracture. Patient declines any dressing. Nontoxic appearing. CMS intact. Discharge instructions reviewed with patient, as well as provided in writing per nursing staff. The instructions also include specific and strict return/GO TO THE ER as well as f/u information. All questions have been answered, and the patient deny any further questions with discharge and discharge plan. Some parts of this dictation were generated by voice recognition software and may contain typographical and/or grammatical inaccuracies. Differential Diagnosis Differential diagnosis: Likely other (Finger fracture, musculoskeletal pain, bruising) Medical Records Attestation: I reviewed the patient's medical records. Imaging Data Attestation: I personally reviewed and interpreted this imaging study as follows: My impression: no fracture Radiologist's impression: Patient: Ramírez Bee : 1990 MR#: [id number] Age: 33 Acct:[id number] Loc: [facility] ADM Date: 08/09/24Attending Dr: Ordering Physician: Paulina Mcgill FNP Date of Service: 08/09/24 Procedure(s): XR finger 1st RT min 2V Accession Number(s): [id number] cc: Paulina Mcgill FNP; Eros Zarate MD~ XR finger 1st RT min 2V DATE: 08/09/2024 14:33 INDICATION: Injury, pain TECHNIQUE: 3 views COMPARISON: None FINDINGS: No fracture or dislocation, periosteal reaction or bone destruction, radiopaque soft tissue foreign body. Joint spaces are preserved. IMPRESSION: Negative Reviewed, dictated and finalized at location A. Dictated By: Kem Cannon MD 08/09/241436 Signed By: <Electronically signed by Kem Cannon MD in OV> 08/09/241436 Discharge Plan Discharge Clinical Impression: Musculoskeletal pain Patient Disposition: Home, Self-Care Condition: Stable Instructions: Antibiotic Form, P.R.I.C.E. Treatment (ED) Additional Instructions: Follow-up with primary care provider, emergency department for new or worse symptoms Patient Language: Paraguayan Prescriptions: No Action rosuvastatin 10 mg tablet 10 mg PO DAILY sertraline 25 mg tablet 25 mg PO DAILY gabapentin 300 mg capsule 300 mg PO BID loratadine 10 mg tablet 10 mg PO DAILY Follow-up/Referrals: Eros Zarate MD [Primary Care Provider] - 2 Weeks Time of Disposition: 14:49
== END 2024-08-09 14:55 | disposition home or self-care (01) ==
PROVIDERS: Emergency Provider Nurse Practitioner Family; PCP Emergency Medicine
DX: M79.644 Pain in right finger(s) (principal); F17.290 Nicotine dependence, other tobacco product, uncomplicated; E78.00 Pure hypercholesterolemia, unspecified; F41.9 Anxiety disorder, unspecified; F32.A Depression, unspecified
CPT/HCPCS: 73140; 99213; G0463

== ENCOUNTER 2025-03-13 12:10 | Emergency (ER) | payer OTHER, SELFPAY ==
[2025-03-13 12:26] VITALS: BP 114/86; PULSE 84; RESP 18; TEMP 36.4; O2SAT 97
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
[2025-03-13] MEDS: KETOROLAC 30 MG/ML VIAL (*BKC) IM (13:18)
== END 2025-03-13 13:41 | disposition home or self-care (01) ==
PROVIDERS: Emergency Provider Nurse Practitioner Family; PCP Emergency Medicine
DX: S39.012A Strain of muscle, fascia and tendon of lower back, initial encounter (principal); X58.XXXA Exposure to other specified factors, initial encounter; F17.200 Nicotine dependence, unspecified, uncomplicated
CPT/HCPCS: 96372; 99213; G0463; J1885